=== PATIENT | female | born 1945 | race Caucasian/White ===

== ENCOUNTER → 2017-10-06 | Outpatient (REF) | payer MEDICARE, OTHER ==
[~2017-10-06] MED LIST: ESTROG; METROGEL TD; PROGEST; PSE30 PO
== END ==
LOC: ZZSENDIN 08:42
PROVIDERS: ATTEND Physician Assistant Medical
DX: R19.7 Diarrhea, unspecified (principal)
CPT/HCPCS: 83630; 87045; 87324; 87449; G0328; 82274

== ENCOUNTER → 2018-02-21 | Outpatient (CLI) | payer MEDICARE, OTHER ==
--- NOTE | 2018-02-21 16:22 | RADIOLOGY IMAGING REPORT ---
[place] [facility] [place] TANIA GARCÍA : [id number] MR: [id number] V: [id number] EXAM DATE: [id number] ORDERING PHYSICIAN: MORGAN LUNA TECHNOLOGIST: Bhavya Givens PROCEDURE:BILATERAL DIGITAL SCREENING MAMMOGRAM WITH CAD ASSISTED INTERPRETATION & 3D TOMOSYNTHESIS COMPARISON:Prior mammograms 09/03/14, 03/15/13, 01/20/12. INDICATIONS:SCREENING FINDINGS: Moderately dense fibroglandular tissue is seen throughout the breasts. Most of the parenchymal pattern has remained stable allowing for difference in mammographic technique & patient positioning. There is a new grouping of tightly clustered calcifications in the approximate 12 o'clock position of the Left breast in the middle 1/3 for which Spot magnification view is recommended. DIAGNOSTIC CATEGORY 0--INCOMPLETE: NEED ADDITIONAL IMAGING EVALUATION. RECOMMENDATIONS: ADDITIONAL MAMMOGRAPHIC VIEWS REQUIRED: LEFT BREAST. IMPRESSION: BIRADS 0: Incomplete. Additional views of the Left breast is recommended as described. Dictated by: Alexandra Kay M.D. on 02/21/2018 at 16:04 Transcribed by: EDUARDO on 02/21/2018 at 16:13 Approved by: Alexandra Kay M.D. on 02/21/2018 at 16:21 [facility]
== END ==
LOC: MAMO 00:18
PROVIDERS: ATTEND Family Medicine
DX: R92.2 Inconclusive mammogram (principal)
CPT/HCPCS: 77063; 77067

== ENCOUNTER → 2018-03-08 | Outpatient (CLI) | payer MEDICARE, OTHER ==
--- NOTE | 2018-03-16 15:21 | RADIOLOGY IMAGING REPORT ---
FACILITY: [facility] - [place] PATIENT NAME: TANIA GARCÍA : [id number] MR: [id number] V: [id number] EXAM DATE: [id number] ORDERING PHYSICIAN: MORGAN LUNA TECHNOLOGIST: Bhavya Givens PROCEDURE:LEFT DIGITAL DIAGNOSTIC MAMMOGRAM COMPARISON:02/21/18. INDICATIONS:abnormal mammogram FINDINGS: The Left breast is heterogeneously dense. A small group of benign appearing calcifications is present in the medial aspect of the Left breast. Several other benign appearing calcifications are scattered in the Left breast. DIAGNOSTIC CATEGORY 3--PROBABLY BENIGN FINDING. RECOMMENDATIONS: SIX MONTH FOLLOW-UP LEFT DIAGNOSTIC MAMMOGRAM WITH MAGNIFICATION VIEW. IMPRESSION: BIRADS 3: Probably benign finding. Dictated by: Chidi Robertson M.D. on 03/08/2018 at 17:18 Transcribed by: EDUARDO on 03/09/2018 at 9:58 Approved by: Perez Mchugh on 03/16/2018 at 15:20 [facility]
== END ==
LOC: MAMO 01:12
PROVIDERS: ATTEND Family Medicine
DX: R92.2 Inconclusive mammogram (principal)
CPT/HCPCS: 77061; 77065

== ENCOUNTER → 2018-09-11 | Outpatient (CLI) | payer MEDICARE, OTHER ==
--- NOTE | 2018-09-12 10:19 | RADIOLOGY IMAGING REPORT ---
FACILITY: [facility] PATIENT NAME: TANIA GARCÍA : [id number] MR: [id number] V: [id number] EXAM DATE: [id number] ORDERING PHYSICIAN: MORGAN LUNA TECHNOLOGIST: Nelia Decker PROCEDURE:LEFT DIGITAL MAMMOGRAM DIAGNOSTIC REASON FOR STUDY: Follow-up calcifications. COMPARISON STUDIES: 03/08/18. BREAST DENSITY: The Left breast is heterogeneously dense. MAMMOGRAM FINDINGS: A course calcification is present in the Left anterior breast, slightly larger compared to previous. Several othere benign appearing calcifications are scattered in the Left breast. DIAGNOSTIC CATEGORY 3--PROBABLY BENIGN FINDING. RECOMMENDATIONS: SIX MONTH FOLLOW-UP DIAGNOSTIC MAMMOGRAM: LEFT BREAST CALCIFICATIONS. SCREENING MAMMOGRAM OF RIGHT BREAST IN SIX MONTHS. IMPRESSION: BIRADS 3: Probably benign finding. Dictated by: Chidi Robertson M.D. on 09/11/2018 at 10:53 Transcribed by: EDUARDO on 09/11/2018 at 13:13 Approved by: Alexandra Kay M.D. on 09/12/2018 at 10:18 [facility]
== END ==
LOC: MAMO 00:47
PROVIDERS: ATTEND Family Medicine
DX: R92.1 Mammographic calcification found on diagnostic imaging of breast (principal)
CPT/HCPCS: 77061; 77065